=== PATIENT | male | born 1980 | race Caucasian/White ===

== ENCOUNTER 2024-08-30 12:04 | Emergency (ER) | payer MEDICAID ==
[~2024-08-30] VITALS: Ht 172.7 cm; Wt 87.0 kg
[2024-08-30 12:35] VITALS: O2SAT 100
[2024-08-30 13:05] LABS: BASOPHILS % 0.5 % (0.0-2.0); EOSINOPHILS % 2.5 % (0.0-5.0); HEMATOCRIT. 39.4 % (42.0-52.0); HEMOGLOBIN. 13.1 g/dL (14.0-18.0); LYMPHOCYTES % 23.2 % (20.0-50.0); MEAN CORPUSCULAR HEMOGLOBIN 31.6 pg (28.0-32.0); MEAN CORPUSCULAR HGB CONC 33.3 g/dL (31.0-37.0); MEAN CORPUSCULAR VOLUME 94.9 fL (80.0-94.0); MEAN PLATELET VOLUME 7.8 fl (7.4-10.4); MONOCYTES % 7.1 % (2.0-8.0); NEUTROPHILS % 66.7 % (40.0-76.0); PLATELET 283 x1000/uL (130-400); RED BLOOD CELL COUNT 4.15 mill/uL (4.7-6.1); RED CELL DISTRIBUTION WIDTH 13.1 % (11.6-14.6); WHITE BLOOD COUNT 5.6 x1000/uL (4.5-11.0)
[2024-08-30 13:06] LABS: CHLORIDE 108 mEq/L (98-107); POTASSIUM 3.7 mEq/L (3.5-5.1); SODIUM 137 mEq/L (136-145)
[2024-08-30 13:07] LABS: CARBON DIOXIDE 22 mEq/L (21-32); PROTHROMBIN TIME 10.7 sec (9.6-11.0)
[2024-08-30 13:08] LABS: CALCIUM 9.5 mg/dL (8.7-10.4)
[2024-08-30 13:12] LABS: CREATININE 0.9 mg/dL (0.6-1.3); GLUCOSE 89 mg/dL (70-105)
[2024-08-30] MEDS: FAMOTIDINE 20MG TABLET PO SCH (13:12)
[2024-08-30] MEDS: TRAMADOL 50MG TABLET PO ONE (13:12)
[2024-08-30] MEDS: ONDANSETRON 4MG ODT PO STA (13:12)
[2024-08-30 13:13] LABS: UREA NITROGEN BLOOD 14 mg/dL (9-23)
[2024-08-30 13:55] LABS: CLARITY URINE CLEAR (CLEAR); COLOR URINE YELLOW (YELLOW); GLUCOSE URINE NEGATIVE (NEGATIVE); KETONES URINE 1+ (NEGATIVE); LEUKOCYTE ESTERASE URINE NEGATIVE (NEGATIVE); NITRITE URINE NEGATIVE (NEGATIVE); OCCULT BLOOD URINE NEGATIVE (NEGATIVE); PROTEIN URINE NEGATIVE (NEGATIVE); SPECIFIC GRAVITY URINE 1.012 (1.005-1.030); UROBILINOGEN URINE 0.2 E.U./dL (0.2-1.0)
[2024-08-30] MEDS: IOHEXOL-300 100 ML BOTTLE ONE (15:23)
[2024-08-30] MEDS: MAGNESIUM/ALUMINUM HYDROXIDE/SIMETHICONE 30ML UDC PO NR (17:38)
[2024-08-30] MEDS: HYDROCODONE/ACETAMINOPHEN 5/325MG TABLET PO PRN (19:00)
[2024-08-30] MEDS ORDERED: PROT40 MT (21:22)
[2024-08-30] MEDS ORDERED: ONDA-239 PO (21:22)
[2024-08-30] MEDS ORDERED: HYDR-4005 MT (21:22)
[2024-08-30] MEDS ORDERED: IOHEXOL-300 100 ML BOTTLE ONE (21:48)
[2024-08-30 22:36] VITALS: BP 133/88; PULSE 71; RESP 22; TEMP 36.55848; O2SAT 100
== END 2024-08-30 22:37 | disposition home or self-care (01) ==
LOC: ER 12:04 → EDBD 12:04 → ER 22:37
DX: R10.13 Epigastric pain (principal); R11.2 Nausea with vomiting, unspecified; I10 Essential (primary) hypertension
CPT/HCPCS: 80048; 81003; 83690; 85025; 85610; 36415; 74177; 99285; Q9967; Q0162; Z7610 ×2